=== PATIENT | male | born 1945 | race Caucasian/White ===

== ENCOUNTER 2017-04-27 07:20 | Emergency (ER) | payer MEDICARE ==
[~2017-04-27] VITALS: Ht 188 cm; Wt 88.9 kg
[~2017-04-27 07:20] MED LIST: ALLO100T30 PO; CHOL2000; CHOL500050 PO; ENAL1TAB5 PO; LEVO150T PO
[2017-04-27 07:22] VITALS: BP 156/88
[2017-04-27] MEDS ORDERED: COLCHICINE 0.6 MG TABLET PO SCH (08:30)
[2017-04-27 08:44] LABS: BLOOD UREA NITROGEN 57 mg/dL (7-18)
[2017-04-27 08:48] LABS: ASPARTATE AMINO TRANSFERASE 8 U/L (15-37)
== END 2017-04-27 11:28 | disposition home or self-care (01) ==
LOC: ED 10:10
DX: M13.142 Monoarthritis, not elsewhere classified, left hand (principal); M10.9 Gout, unspecified; I12.9 Hypertensive chronic kidney disease with stage 1 through stage 4 chronic kidney disease, or unspecified chronic kidney disease; N18.9 Chronic kidney disease, unspecified; E87.5 Hyperkalemia
CPT/HCPCS: 36415; 80053; 85025; 99284

== ENCOUNTER 2017-10-23 00:23 | Emergency (ER) | payer MEDICARE ==
[~2017-10-23] VITALS: Ht 188 cm; Wt 90.0 kg
[2017-10-23 00:24] VITALS: BP 160/90
[2017-10-23] MEDS ORDERED: COLCHICINE 0.6 MG TABLET PO ONE (01:30)
== END 2017-10-23 02:39 | disposition home or self-care (01) ==
LOC: ED 02:33
DX: M10.061 Idiopathic gout, right knee (principal); M13.161 Monoarthritis, not elsewhere classified, right knee; I10 Essential (primary) hypertension; Z88.0 Allergy status to penicillin
CPT/HCPCS: 99283

== ENCOUNTER 2018-03-26 04:37 | Emergency (ER) | payer MEDICARE ==
[~2018-03-26] VITALS: Ht 188 cm; Wt 90.0 kg
[~2018-03-26 04:37] MED LIST changes: +AMLO10TA2 PO; +CEFD300C37 PO; +FLOMAX PO; +SODI325T PO
[2018-03-26 04:39] VITALS: BP 152/80
[2018-03-26] MEDS ORDERED: COLCHICINE 0.6 MG TABLET ONE (05:11)
[2018-03-26] MEDS ORDERED: COLCHICINE 0.6 MG TABLET PO SCH (05:30)
== END 2018-03-26 05:35 | disposition home or self-care (01) ==
LOC: ED 05:25
DX: M79.672 Pain in left foot (principal); M10.072 Idiopathic gout, left ankle and foot; I10 Essential (primary) hypertension; M19.90 Unspecified osteoarthritis, unspecified site; X58.XXXA Exposure to other specified factors, initial encounter; Y93.89 Activity, other specified; Y99.8 Other external cause status; Y92.89 Other specified places as the place of occurrence of the external cause
CPT/HCPCS: 99283

== ENCOUNTER 2018-05-11 07:19 | Emergency (ER) | payer MEDICARE ==
[~2018-05-11] VITALS: Ht 188 cm; Wt 89.8 kg
[2018-05-11 08:51] VITALS: BP 147/68
== END 2018-05-11 08:53 | disposition home or self-care (01) ==
LOC: ED 08:49
DX: S51.812A Laceration without foreign body of left forearm, initial encounter (principal); W27.0XXA Contact with workbench tool, initial encounter; Y93.89 Activity, other specified; Y92.096 Garden or yard of other non-institutional residence as the place of occurrence of the external cause; Y99.8 Other external cause status
CPT/HCPCS: 12041; 99284

== ENCOUNTER 2019-04-29 10:07 | Emergency (ER) | payer MEDICARE ==
[~2019-04-29] VITALS: Ht 188 cm; Wt 97.0 kg
[~2019-04-29 10:07] MED LIST changes: -AMLO10TA2 PO; +AMLO10TA8 PO; +ENAL5TAB PO
--- NOTE | 2019-04-29 10:25 | NUR ---
PT C/O BLOOD IN THE URINE SINCE THIS AM WITH CHILLS DEVLOPING OVER THE LAST HOUR. PT HAS RIGHT FLANK PAIN SIMILAR IN NATURE TO KIDNEY STONE PAIN PT HAS HAD IN THE PST. PT REPORTS HAVING 200 KIDNEY STONES, MULTIPLE SURGERIES TO REMOVE. UA COLLECTED AND SENT TO THE LAB. WAITING FOR MD ORDERS.
[2019-04-29 10:53] LABS: BASOPHILS # (AUTO) 0.02 x10^3/uL (0-0.1); BASOPHILS % (AUTO) 1 % (0-1); EOSINOPHILS % (AUTO) 2 % (1-7); LYMPHOCYTES # (AUTO) 1.13 x10^3/uL (1-3.4); LYMPHOCYTES % (AUTO) 23 % (22-44); MD NO; MEAN CORPUSCULAR HEMOGLOBIN 30.6 pg (27.5-34.5); MEAN CORPUSCULAR HGB CONC 33.2 g/dL (33.2-36.2); MEAN CORPUSCULAR VOLUME 92.4 fL (81-97); MONOCYTES # (AUTO) 0.45 x10^3/uL (0.2-0.8); MONOCYTES % (AUTO) 9 % (2-9); NEUTROPHILS # (AUTO) 3.23 x10^3/uL (1.8-6.8); NEUTROPHILS % (AUTO) 65 % (42-75); PLATELET COUNT 187 x10^3/uL (130-400); RED BLOOD COUNT 2.79 x10^6/uL (4.38-5.82); RED CELL DISTRIBUTION WIDTH 14.3 % (9.4-14.8)
[2019-04-29 11:04] LABS: ALBUMIN 3.1 g/dL (3.4-5.0); ANION GAP 8 mmol/L (5-15); CALCIUM 6.8 mg/dL (8.5-10.1); CHLORIDE 110 mmol/L (98-107); CREATININE 5.29 mg/dL (0.7-1.3)
[2019-04-29 11:05] LABS: MICROSCOPIC INDICATED
[2019-04-29 11:11] LABS: CULTURE INDICATED? YES
[2019-04-29] MEDS ORDERED: CEFTRIAXONE PMX 1GM/50ML 50 ML ONE (11:21)
--- NOTE | 2019-04-29 11:24 | NUR ---
IV STARTED AND FLUIDS RUNNING. NO BLOOD CULTURES NEED PER DR. ZIEGLER PRIOR TO ANTIBIOTICS.
[2019-04-29] MEDS ORDERED: SODIUM CHLORIDE 0.9% 1,000ML IVBOLUS ONE (11:30)
[2019-04-29] MEDS ORDERED: CEFTRIAXONE PMX 1GM/50ML 50 ML IV ONE (11:30)
--- NOTE | 2019-04-29 12:05 | NUR ---
PT TO CT.
--- NOTE | 2019-04-29 12:49 | NUR ---
POST RESIDUAL VOID OF [address] ZIEGLER AWARE. PT REPORTS URINE HAS LIGHTENED UP AFTER BOLUS.
[2019-04-29 13:20] VITALS: BP 129/89
== END 2019-04-29 13:32 | disposition home or self-care (01) ==
LOC: ED 10:36
DX: N30.01 Acute cystitis with hematuria (principal); E86.0 Dehydration; I12.9 Hypertensive chronic kidney disease with stage 1 through stage 4 chronic kidney disease, or unspecified chronic kidney disease; N18.9 Chronic kidney disease, unspecified; M19.90 Unspecified osteoarthritis, unspecified site
CPT/HCPCS: 36415; 74176; 80048; 81001; 82040; 85025; 87077; 87086; 87186; 96365; 99284; J0696; J7030